=== PATIENT | female | born 1970 | race Caucasian/White ===

== ENCOUNTER 2019-12-04 10:57 | Emergency (ER) | payer MEDICARE, OTHER ==
[~2019-12-04] VITALS: Ht 177.8 cm; Wt 154.2 kg
[~2019-12-04 10:57] MED LIST: ASPIR 8181 MG PO; ASPIRIN325 MG PO; LASIX40 MG PO; LIPITOR20 MG PO; LOSARTAN POTASS25 MG PO; NEURONTIN300 MG PO
--- OUTSIDE RECORDS SUMMARY | 2019-12-04 11:00 | XMS REPORT ---
Author [facility] Address Unknown Phone Unavailable Care Team Providers Care Student Officer Name Role Phone Nereida CERDA Unavailable Unavailable BOCCARDO, ANDREW Unavailable Unavailable Payers Payer Name Policy Type Policy Number Effective Date Expiration Date Problems This patient has no known problems. Allergies, Adverse Reactions, Alerts Allergy Name Allergy Type Status Severity Reaction(s) Onset Date Inactive Date Treating Clinician Comments No Known Allergies DA Active U 2013-04-14 00:00:00 Medications This patient has no known medications. 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 The osseous structures are unremarkable in size and shape. The joint spaces are maintained. No evidence of fracture. The acromial clavicular joint is intact IMPRESSION: Nonspecific minimal elevation of the right humeral head suggestive of possible rotator cuff disease. No acute osseous abnormality at 1742 Reported and signed by: Artem Garcia M.D. CC: Yovani Sexton MD; Douglas Alvarado MD Technologist: Samina Perry Trnscrpt Data: 12/30/2018 (1742) t.SDR.VTL Orig Print D/T: S: 12/30/2018 (0801) PAGE 1 Signed Report CHEST 2 VIEWS [place] [address] Patient Name: JHONATAN GUZMAN MR #: [id number] : 1970 Age/Sex: 47/F Req #: [id number] Adm Physician: Ordered by: ANKIT CERDA MD Report #: [id number] Location: ER Room/Bed: Procedure: [id number] DX/CHEST 2 VIEWS Exam Date: 06/26/17 Exam Time: 2018 REPORT STATUS: Signed EXAMINATION: CHEST 2 VIEWS 06/26/2017 7:48 PM COMPARISON: Chest radiograph from 06/09/2017 INDICATION: Chest pain DISCUSSION: LINES: None. LUNGS: The lungs are well inflated and clear. No pneumonia or pulmonary edema. PLEURA: No pleural effusion or pneumothorax. HEART AND MEDIASTINUM: Mild cardiomegaly, unchanged BONES AND SOFT TISSUES: No acute osseous lesion. The soft tissues are normal. IMPRESSION: Mild cardiomegaly, unchanged. No evidence of edema or infection. Michael Urbano MD Signed by: Dr. Michael Urbano M.D. on 06/26/2017 8:37 PM Dictated By: MICHAEL URBANO MD 36 Transcribed By: MELANIA on 06/26/172036 COPY TO: ANKIT CERDA MD CHEST SINGLE (PORTABLE) [place] [address] Patient Name: JHONATAN GUZMAN MR #: [id number] : 1970 Age/Sex: 47/F Req #: [id number] Adm Physician: ANDREW HOPSON MD Ordered by: ANKIT CERDA MD Report #: [id number] Location: MED/SURG Room/Bed: [facility] Procedure: [id number] DX/CHEST SINGLE (PORTABLE) Exam Date: 06/09/17 Exam Time: 0515 REPORT STATUS: Signed CHEST SINGLE (PORTABLE), 06/09/2017 7:00 AM Technique: CHEST SINGLE (PORTABLE) Comparison: 06/07/2017 Clinical history: Shortness of breath/congestive heart failure Findings: See Impression Impression: 1. Stable mildly enlarged cardiac silhouette. 2. Central vascular congestion. No edema or pleural effusion. Signed by: Dr Davy Maria MD on 06/09/2017 6:23 AM Dictated By: DAVY MARIA MD 2 Transcribed By: MELANIA on 06/09/17622 COPY TO: ANKIT CERDA MD CHEST SINGLE (PORTABLE) [place] [address] Patient Name: JHONATAN GUZMAN MR #: [id number] : 1970 Age/Sex: 47/F Req #: [id number] [facility] Physician: Ordered by: GRICEL BROWN MD Report #: [id number] Location: ER Room/Bed: Procedure: [id number] DX/CHEST SINGLE (PORTABLE) Exam Date: 06/07/17 Exam Time: 1904 REPORT STATUS: Signed Portable chest x-ray INDICATION: Pain COMPARISON: None FINDINGS: Frontal view of the chest obtained at 1903 hours. The cardiac silhouette is enlarged. The central pulmonary vasculature is prominent. The lungs demonstrate no confluent infiltrates or masses. The costophrenic angles are sharp. There is no pneumothorax. The osseous structures are intact and normal in morphology. IMPRESSION: Cardiomegaly and central vascular congestion. This could represent pulmonary venous hypertension, but a component of pulmonary vascular congestion cannot be excluded. Signed by: Dr. Elisabeth De La Cruz MD on 06/07/2017 7:39 PM Dictated By: ELISABETH DE LA CRUZ MD 38 Transcribed By: MELANIA on 06/07/171938 COPY TO: GRICEL BROWN MD
[2019-12-04] MEDS ORDERED: CEFTRIAXONE SOD 1 GM VIAL IM ONE (11:15)
[2019-12-04] MEDS ORDERED: CLINDAMYCIN PHOS 600 MG/ 4 ML VIAL IM ONE (11:15)
[2019-12-04 11:31] VITALS: BP 140/81
== END 2019-12-04 11:37 | disposition home or self-care (01) ==
LOC: ER 10:57
DX: L02.01 Cutaneous abscess of face (principal); I10 Essential (primary) hypertension; E11.9 Type 2 diabetes mellitus without complications; E78.5 Hyperlipidemia, unspecified; I51.9 Heart disease, unspecified; K31.9 Disease of stomach and duodenum, unspecified; Z86.14 Personal history of Methicillin resistant Staphylococcus aureus infection; I25.2 Old myocardial infarction; Z98.84 Bariatric surgery status
CPT/HCPCS: 99283; J0696

== ENCOUNTER → 2020-05-29 | Outpatient (CLI) | payer OTHER ==
[~2020-05-29] MED LIST changes: +CARVEDILOL12.5 MG PO; +IOPAMIDOL 370 MG/ML 200 ML INFUS..BTL INJ ONE; +LISINOPRIL5 MG PO; +SERTRALINE HCL100 MG PO; +SODIUM CHLORIDE 0.9% 50ML 50 ML ONE; +SPIRONOLACTONE25 MG PO; +ULTRAM50 MG PO; +ZOFRAN8 MG PO
[2020-05-29 14:28] LABS: BLOOD UREA NITROGEN 12 mg/dL (7-26); BUN/CREATININE RATIO 15 (6-25); CREATININE, SERUM 0.79 mg/dL (0.57-1.11); EST GLOMERULAR FILTRATION RATE > 60 ML/MIN (60-)
--- NOTE | 2020-05-29 15:15 | Diagnostic Imaging Report ---
EXAM: CT Abdomen and Pelvis WITH intravenous contrast INDICATION: Abdominal pain, diarrhea COMPARISON: None. TECHNIQUE: Abdomen and pelvis were scanned utilizing a multidetector helical scanner from the lung base to the pubic symphysis after administration of IV contrast. Coronal and sagittal reformations were obtained. Routine protocol was performed. Scan was performed during portal venous phase. IV CONTRAST: 100mL of Isovue 370 ORAL CONTRAST: Water RADIATION DOSE: Total DLP: 1329 mGy*cm Dose modulation, iterative reconstruction, and/or weight based adjustment of the mA/kV was utilized to reduce the radiation dose to as low as reasonably achievable. FINDINGS: LOWER THORAX: Normal. HEPATOBILIARY: No focal hepatic lesions. No biliary ductal dilatation. The gallbladder appears unremarkable. SPLEEN: No splenomegaly. PANCREAS: No focal masses or ductal dilatation. ADRENALS: No adrenal nodules. KIDNEYS/URETERS: No hydronephrosis, stones, or solid mass lesions. PELVIC ORGANS/BLADDER: Unremarkable. PERITONEUM / RETROPERITONEUM: No free air or fluid. LYMPH NODES: No lymphadenopathy. VESSELS: Unremarkable. GI TRACT: No abnormal bowel thickening. No bowel obstruction. Normal appendix. Postoperative findings of gastric bypass. BONES AND SOFT TISSUES: No acute osseous injury. Focal degenerative changes of L2-3. No suspicious lytic or blastic lesions. IMPRESSION: No acute findings in the abdomen or pelvis. Signed by: Zak Feliz MD on 05/29/2020 3:12 PM
== END ==
LOC: CT 13:53
PROVIDERS: ATTEND Internal Medicine Gastroenterology
DX: R19.7 Diarrhea, unspecified (principal); R10.30 Lower abdominal pain, unspecified; R10.10 Upper abdominal pain, unspecified
CPT/HCPCS: 36415; 74177; 82565; 84520; Q9967

== ENCOUNTER → 2020-08-06 | Day surgery (SDC) | payer OTHER ==
[2020-08-03 15:09] LABS: BASOPHILS # (AUTO) 0.1 (0.0-0.1); BASOPHILS % 0.6 % (0.0-1.0); EOSINOPHILS # (AUTO) 0.2 (0.0-0.4); EOSINOPHILS % 1.7 % (0.0-6.0); HEMATOCRIT 31.3 % (34.2-44.1); HEMOGLOBIN 9.3 g/dL (12.0-16.0); LYMPHOCYTES # (AUTO) 2.3 (1.0-3.2); LYMPHOCYTES % 26.2 % (18.0-39.1); MEAN CORPUSCULAR HEMOGLOBIN 24.9 pg (28-32); MEAN CORPUSCULAR HGB CONC 29.7 g/dL (31-35); MEAN CORPUSCULAR VOLUME 83.7 fL (81-99); MONOCYTES # (AUTO) 0.8 (0.2-0.8); NEUTROPHILS # (AUTO) 5.4 (2.1-6.9); NEUTROPHILS % 62.3 % (38.7-80.0); PLATELET COUNT 342 x10e3/uL (140-360); RED BLOOD COUNT 3.74 x10e6/uL (3.6-5.1); RED CELL DISTRIBUTION WIDTH 16.2 % (11.7-14.4)
[~2020-08-06] MED LIST changes: +FARXIGA5 MG PO; +FENTANYL CITRATE/PF 100MCG/2 ML INJ ONE; +GLYCOPYRROLATE INJ 0.2 MG/ML VIAL ONE; +HYOSCYAMINE 0.125 MG TAB ONE; -IOPAMIDOL 370 MG/ML 200 ML INFUS..BTL INJ ONE; +KETAMINE HCL INJ 50 MG/ML 10 ML VIAL ONE; +LIDOCAINE HCL 2% LOCAL INJ 5 ML SDV VIAL INJ ONE; +METOCLOPRAMIDE HCL 10 MG/2ML VIAL ONE; +MIDAZOLAM HCL 5 MG/ML VIAL ONE; +ONDANSETRON HCL INJ 2MG/ML 2ML 2 MG/ML VIAL ONE; +PROPOFOL IV EMULSION 10 MG/ML 20 ML VIAL ONE; -SODIUM CHLORIDE 0.9% 50ML 50 ML ONE; +TRADJENTA5 MG PO
[2020-08-06 11:30] VITALS: BP 118/56
[2020-08-06 11:51] LABS: % IRON SATURATION 7 % (15-50); IRON 26 ug/dL (50-170); TOTAL IRON BINDING CAPACITY 367 ug/dL (261-478); TRANSFERRIN 262 mg/dL (180-382)
[2020-08-06 15:19] LABS: WBC,FECAL (FECAL LACTOFERRIN) NEGATIVE (NEGATIVE)
[2020-08-07 11:24] LABS: C DIFFICILE TOXIN A&B AMP PROB **POSITIVE** (NEGATIVE)
== END | disposition home or self-care (01) ==
LOC: OR 08:05
PROVIDERS: ATTEND Internal Medicine Gastroenterology
DX: K29.70 Gastritis, unspecified, without bleeding (principal); D12.8 Benign neoplasm of rectum; K52.9 Noninfective gastroenteritis and colitis, unspecified; K21.9 Gastro-esophageal reflux disease without esophagitis; K20.90 Esophagitis, unspecified without bleeding; K62.89 Other specified diseases of anus and rectum; K64.8 Other hemorrhoids; Z98.84 Bariatric surgery status; G47.33 Obstructive sleep apnea (adult) (pediatric); I25.2 Old myocardial infarction; I25.10 Atherosclerotic heart disease of native coronary artery without angina pectoris; E66.01 Morbid (severe) obesity due to excess calories; E11.9 Type 2 diabetes mellitus without complications; I11.0 Hypertensive heart disease with heart failure; I50.9 Heart failure, unspecified; F41.9 Anxiety disorder, unspecified; F32.9 Major depressive disorder, single episode, unspecified; Z01.810 Encounter for preprocedural cardiovascular examination; Z01.812 Encounter for preprocedural laboratory examination; Z20.828 Contact with and (suspected) exposure to other viral communicable diseases; Z95.5 Presence of coronary angioplasty implant and graft
CPT/HCPCS: 36415 ×2; 43239; 45380; 82607; 82746; 82948; 83540; 83630; 83993; 84466; 85025; 85045; 87045; 87177; 87328; 87493; 93005; J2001; J2250; J2405; J2704; J2765; J3010; U0002; 45378